=== PATIENT | male | born 1955 | race Caucasian/White ===

== ENCOUNTER 2017-05-08 18:42 | Emergency (ER) | payer BC, OTHER ==
[~2017-05-08] VITALS: Ht 170.2 cm; Wt 143.0 kg
[~2017-05-08 18:42] MED LIST: ATEN1TAB PO; CEPH500C3 PO; DIOV40TA PO; GLUCTAB PO; GLYB1TAB50 PO; Z.0.UNKNOWN
[2017-05-08 18:45] VITALS: BP 155/81; PULSE 71; RESP 18; TEMP 98.3; O2SAT 95
[2017-05-08 19:24] LABS: BILIRUBIN, URINE NEG (NEG); BLOOD, URINE LARGE (NEG); GLUCOSE,URINE 100 mg/dL (NEG); KETONE, URINE NEG (NEG); NITRITE,URINE POS (NEG); URINE LEUKOCYTE ESTERASE SMALL (NEG)
[2017-05-08 19:33] LABS: URINE COLOR AMBER (YELLW/STRAW)
[2017-05-08] MEDS ORDERED: CIPR-9 PO (19:33)
[2017-05-08] MEDS ORDERED: VALS1TAB65 PO (19:33)
[2017-05-08] MEDS ORDERED: ALLO100T PO (19:33)
[2017-05-08] MEDS ORDERED: GLYB1.253 PO (19:33)
[2017-05-08] MEDS ORDERED: PHEN-425 PO (19:33)
[2017-05-08] MEDS ORDERED: ATEN50TA7 PO (19:33)
[2017-05-08] MEDS ORDERED: METF1000 PO (19:33)
[2017-05-08 19:35] LABS: SQUAMOUS EPITHELIAL CELL URINE 0-5 /hpf (0-5); WBC, URINE 15-19 /hpf (0-5)
[2017-05-08 19:36] LABS: MUCUS URINE OCC /lpf (OCC)
[2017-05-08 19:37] LABS: BACTERIA, URINE RARE /hpf
[2017-05-08] MEDS ORDERED: LIDOCAINE HCL 1% 50 ML VIAL IM ONE (20:00)
[2017-05-08] MEDS ORDERED: BACT800T5 PO (20:00)
--- NOTE | 2017-05-08 20:00 | PD ---
HPI Chief Complaint: Back/ Neck Pain or Injury Time Seen by Provider: 19:30 Travel History International Travel<30 days: No Contact w/Intl Traveler<30days: No Traveled to known affect area: No History of Present Illness HPI 62 year old male with history diabetes and hypertension currently being treated for UTI here for evaluation of continued dysuria. He also reports mild right low back pain. He was instructed by the urgent care clinic where he was originally treated to be reevaluated if he developed back pain. He reports he has had a previous UTI approximately 10 years ago with similar symptoms. He has dysuria, frequency, urgency and mild low back pain. He denies fever, chills abdominal pain, nausea, vomiting, hematuria. Symptoms are improved with days ago and Aleve. Symptoms severity is mild. He reports no change in his Accu-Chek readings PFSH Past Medical History Hx Anticoagulant Therapy: No Cardiovascular Problems: Yes (HTN) Diabetes: Yes Patient Takes Glucophage: Yes (THIS AM) Diminished Hearing: No Gout: Yes Hypertension: Yes Immunizations Current: Yes Influenza Vaccination: No Past Surgical History Surgical History: No Previous Surgery Social History Alcohol Use: No Tobacco Use: No Substance Use: No Allergies-Medications (Allergen,Severity, Reaction): Coded Allergies: shellfish derived (Verified Allergy, Severe, 05/08/17) Reported Meds & Prescriptions Reported Meds & Active Scripts Active Bactrim DS (Sulfamethoxazole-Trimethoprim) 800-160 Mg Tab 1 Tab PO BID Reported Phenazopyridine (Phenazopyridine HCl) 95 Mg Tab Unknown Dose PO TID PRN Cipro (Ciprofloxacin HCl) 500 Mg Tab 500 Mg PO BID Atenolol-Chlorthalidone 50-25 Mg Tab 1 Tab PO DAILY Allopurinol 100 Mg Tab 100 Mg PO DAILY Glyburide 1.25 Mg Tab Unknown Dose PO BID Take with meals at the same time each day Valsartan 160 Mg Tab 160 Mg PO DAILY Metformin (Metformin HCl) 1,000 Mg Tab 1,000 Mg PO BIDPC Review of Systems Except as stated in HPI: all other systems reviewed are Neg General / Constitutional: No: Fever Eyes: No: Visual changes Cardiovascular: No: Chest Pain or Discomfort Respiratory: No: Shortness of Breath Gastrointestinal: No: Abdominal Pain Genitourinary: Positive: Urgency, Frequency, Dysuria Musculoskeletal: No: Pain Skin: No Rash Neurologic: No: Weakness Physical Exam Narrative GENERAL: Alert well-appearing male. SKIN: Warm and dry. HEAD: Normocephalic. EYES: No injection or drainage. NECK: Supple, trachea midline. CARDIOVASCULAR: Regular rate and rhythm without murmurs, gallops, or rubs. RESPIRATORY: Breath sounds equal bilaterally. No accessory muscle use. GASTROINTESTINAL: Abdomen soft, non-tender, nondistended. MUSCULOSKELETAL: No cyanosis, or edema. BACK: without obvious deformity. No CVA tenderness. Data Data Last Documented VS Vital Signs Date Time Temp Pulse Resp B/P (MAP) Pulse Ox O2 Delivery O2 Flow Rate FiO2 05/08/17 18:45 98.3 71 18 155/81 (105) 95 Orders Orders Urinalysis - C+S If Indicated (05/08/17 18:44) Urine Culture (05/08/17 19:15) Lidocaine 1% Inj (50 Ml) (Xylocaine 1% I (05/08/17 20:00) Ceftriaxone Inj (Rocephin Inj) (05/08/17 20:00) Labs Laboratory Tests Test 05/08/17 19:15 Urine Color ZAN Urine Turbidity CLEAR Urine pH 5.0 Urine Specific [place] 1.019 Urine Protein TRACE mg/dL Urine Glucose (UA) 100 mg/dL Urine Ketones NEG mg/dL Urine Occult Blood LARGE Urine Nitrite POS Urine Bilirubin NEG Urine Leukocyte Esterase SMALL Urine RBC 10-14 /hpf Urine WBC 15-19 /hpf Urine Squamous Epithelial Cells 0-5 /hpf Urine Bacteria RARE /hpf Urine Mucus OCC /lpf Microscopic Urinalysis Comment CULTURE INDICATED MDM Medical Decision Making Medical Screen Exam Complete: Yes Emergency Medical Condition: Yes Differential Diagnosis Pyelonephritis, UTI, nephrolithiasis Narrative Course 62-year-old male here with dysuria, urgency, frequency. He is on day 3 of ciprofloxacin for UTI. He denies fever, chills, worsening of symptoms. He was advised to be reevaluated if symptoms do not improve in 3 days. He is well- appearing. His vital signs are stable. He is afebrile. His urine demonstrates continued infection. Culture and sensitivity is pending. Patient will be given Rocephin 1 g IM now and discharged with prescription of Keflex and instructed to follow up with his primary doctor in 2 days. He was instructed to return prior if he develops new or worsening symptoms. Diagnosis Primary Impression: UTI (urinary tract infection) Qualified Codes: N30.01 - Acute cystitis with hematuria Referrals: Primary Care Physician Additional Instructions: Take the antibiotics as prescribed. Drink plenty of fluids. Follow-up with her doctor in 1-2 days for recheck. Return if he developed fever, chills, vomiting, increasing severe back pain, difficulty or inability to void Scripts Cephalexin (Keflex) 500 Mg Capsule 500 MG PO Q6H for Infection for 7 Days, #28 CAP 0 Refills Prov: Jaky Romeo 05/08/17 Disposition: 01 DISCHARGE HOME Condition: Stable Jaky Romeo May 08, 2017 20:00
[2017-05-08] MEDS ORDERED: CEPH-460 PO (20:09)
[2017-05-08] MEDS ORDERED: LIDOCAINE HCL 1% 20 ML VIAL INFIL ONE (20:15)
== END 2017-05-08 20:54 | disposition home or self-care (01) ==
LOC: PHEFT 18:42
DX: N30.01 Acute cystitis with hematuria (principal); M54.5 Low back pain; E11.9 Type 2 diabetes mellitus without complications; I10 Essential (primary) hypertension; M10.9 Gout, unspecified; Z79.84 Long term (current) use of oral hypoglycemic drugs
CPT/HCPCS: 81001; 87086; 96372; 99284; J0696

== ENCOUNTER 2017-06-05 12:12 | Emergency (ER) | payer BC ==
[~2017-06-05] VITALS: Ht 170.2 cm; Wt 143.0 kg
[~2017-06-05 12:12] MED LIST changes: +ALLO100T PO; -ATEN1TAB PO; +ATEN50TA7 PO; +CEPH-460 PO; -CEPH500C3 PO; +CIPR-9 PO; -DIOV40TA PO; -GLUCTAB PO; +GLYB1.253 PO; -GLYB1TAB50 PO; +METF1000 PO; +PHEN-425 PO; +VALS1TAB65 PO; -Z.0.UNKNOWN
[2017-06-05 12:25] LABS: BLOOD, URINE LARGE (NEG); GLUCOSE,URINE NEG (NEG); KETONE, URINE TRACE mg/dL (NEG); NITRITE,URINE POS (NEG); PH, URINE 5.5 (5.0-8.5); URINE LEUKOCYTE ESTERASE LARGE (NEG)
[2017-06-05 12:32] LABS: BILIRUBIN, URINE NEG (NEG)
[2017-06-05 12:34] LABS: RBC, URINE INNUM /hpf (0-3); URINE COLOR RED (YELLW/STRAW); WBC, URINE 100-200 /hpf (0-5)
[2017-06-05 12:35] LABS: BACTERIA, URINE RARE /hpf; SQUAMOUS EPITHELIAL CELL URINE 0-5 /hpf (0-5)
[2017-06-05 12:38] VITALS: BP 162/77; PULSE 74; RESP 16; TEMP 98.3; O2SAT 94
[2017-06-05] MEDS ORDERED: LEVA750T9 PO (12:59)
--- NOTE | 2017-06-05 13:03 | PD ---
HPI Chief Complaint: Complaint Time Seen by Provider: 12:45 Travel History International Travel<30 days: No Contact w/Intl Traveler<30days: No Traveled to known affect area: No History of Present Illness HPI 62-year-old uncircumcised male with history of diabetes presents for evaluation of dysuria. Symptoms started this morning. He reports a burning sensation when he urinates with associated hematuria. He denies any flank pain, abdominal pain, nausea or vomiting, testicle or scrotal pain, rectal pain, fevers or chills. He was seen here one month ago where he was diagnosed with UTI. Initially he was on ciprofloxacin which was changed to Keflex. Urinary culture revealed no growth. He is sexually active with only his . He has no other complaints at this time. PFSH Past Medical History Hx Anticoagulant Therapy: No Cardiovascular Problems: Yes (HTN) Diabetes: Yes Patient Takes Glucophage: Yes Diminished Hearing: No Gout: Yes Hypertension: Yes Immunizations Current: Yes Tetanus Vaccination: < 5 Years Social History Alcohol Use: No Tobacco Use: No Substance Use: No Allergies-Medications (Allergen,Severity, Reaction): Coded Allergies: shellfish derived (Verified Allergy, Severe, 06/05/17) Reported Meds & Prescriptions Reported Meds & Active Scripts Active Reported Atenolol-Chlorthalidone 50-25 Mg Tab 1 Tab PO DAILY Allopurinol 100 Mg Tab 100 Mg PO DAILY Glyburide 1.25 Mg Tab Unknown Dose PO BID Take with meals at the same time each day Valsartan 160 Mg Tab 160 Mg PO DAILY Metformin (Metformin HCl) 1,000 Mg Tab 1,000 Mg PO BIDPC Review of Systems Except as stated in HPI: all other systems reviewed are Neg Physical Exam Narrative GENERAL: Well-developed well-nourished male in no acute distress SKIN: Warm and dry. HEAD: Atraumatic. Normocephalic. EYES: Pupils equal and round. No scleral icterus. No injection or drainage. ENT: No nasal bleeding or discharge. Mucous membranes pink and moist. NECK: Trachea midline. No JVD. CARDIOVASCULAR: Regular rate and rhythm. No murmur appreciated. RESPIRATORY: No accessory muscle use. Clear to auscultation. Breath sounds equal bilaterally. GASTROINTESTINAL: Abdomen soft, non-tender, nondistended. Hepatic and splenic margins not palpable. examination reveals normal-appearing scrotum, penis without any tenderness to palpation of the testicles. No CVA tenderness. Data Data Last Documented VS Vital Signs Date Time Temp Pulse Resp B/P (MAP) Pulse Ox O2 Delivery O2 Flow Rate FiO2 06/05/17 12:38 98.3 74 16 162/77 (105) 94 Orders Orders Urinalysis - C+S If Indicated (06/05/17 12:15) Urine Culture (06/05/17 12:18) Labs Laboratory Tests Test 06/05/17 12:18 Urine Color RED Urine Turbidity CLOUDY Urine pH 5.5 Urine Specific [place] 1.020 Urine Protein 300 OR GREATER mg/dL Urine Glucose (UA) NEG mg/dL Urine Ketones TRACE mg/dL Urine Occult Blood LARGE Urine Nitrite POS Urine Bilirubin NEG Urine Leukocyte Esterase LARGE Urine RBC INNUM /hpf Urine WBC 100-200 /hpf Urine Squamous Epithelial Cells 0-5 /hpf Urine Bacteria RARE /hpf Microscopic Urinalysis Comment CULTURE INDICATED MDM Medical Decision Making Medical Screen Exam Complete: Yes Emergency Medical Condition: Yes Medical Record Reviewed: Yes Differential Diagnosis Cystitis, prostatitis, pyelonephritis, renal stone Narrative Course 62-year-old male with one-day history of dysuria with associated hematuria. He appears well. Abdomen is soft and nontender. No CVA tenderness. He is not septic in appearance. He has no symptoms of prostatitis. No risk factors for STD. Urinalysis reveals positive nitrites, large blood, 100-200 WBCs, rare bacteria, culture pending. His urinalysis consistent with urinary tract infection. Unfortunately urine culture from early May revealed no growth for cultures and sensitivity. He was previously treated this month initially with Cipro, then Keflex. The patient will be discharged with a 5 day course of Levaquin pending urine culture results. Discussed signs and symptoms that would warrant returning to the emergency room. He is stable for discharge. Diagnosis Primary Impression: Urinary tract infection Additional Instructions: Medication as prescribed. Stay well hydrated and well-nourished. Follow-up with primary care physician. Return for any acutely new or worsening symptoms. Med/Other Pt SpecificInfo: Prescription(s) given Scripts Levofloxacin (Levaquin) 750 Mg Tablet 750 MG PO DAILY for Infection for 5 Days, #5 TAB 0 Refills Prov: Anastasiia Epperson MD 06/05/17 Disposition: 01 DISCHARGE HOME Condition: Stable Estuardo Colin Jun 05, 2017 13:03
== END 2017-06-05 13:13 | disposition home or self-care (01) ==
LOC: PHEFT 12:12
DX: N39.0 Urinary tract infection, site not specified (principal); B96.89 Other specified bacterial agents as the cause of diseases classified elsewhere
CPT/HCPCS: 81001; 87077; 87086; 87186; 99283